=== PATIENT | female | born 1975 | race Hispanic/Latino ===

== ENCOUNTER 2018-01-22 10:30 | Inpatient (IN) | payer MEDICAID ==
[~2018-01-22] VITALS: Ht 152.4 cm; Wt 88.5 kg
[2018-04-02 13:48] VITALS: BP 118/85
[2018-04-02] MEDS ORDERED: LORA10TA7 PO (14:18)
[2018-04-02] MEDS ORDERED: ALBUTEROL NEB (14:18)
[2018-04-02] MEDS ORDERED: PREDNISOLONE AC OU (14:18)
--- NOTE | 2018-04-02 14:20 | NUR ---
SKIN PT HAS A CUT FROM SHAVING TO RT LOWER LEG (FRANCISCO)- SCAB PRESENT, SOME OOZING PER PT, COVERED WITH BAND AID. Addendum: 04/02/18 at 1511 by JONATHAN BURDEN RN RN ADDENDUM 1510- Leonardo SWARTZ NOTIFIED OF PT'S CUT, NO ISOLATION NEEDED, LONG IT IS COVERED IF DRAINING.
[2018-04-02] MEDS ORDERED: ZOLP5TAB8 PO (14:27)
[2018-04-02] MEDS ORDERED: PANT40TA25 PO (14:27)
[2018-04-02] MEDS ORDERED: BUDE10.2 IH (14:27)
[2018-04-02] MEDS ORDERED: TIOT18CA3 IH (14:27)
[2018-04-02] MEDS ORDERED: PROAIR HFA IH (14:27)
[2018-04-02] MEDS ORDERED: SOLI10TA PO (14:27)
--- NOTE | 2018-04-02 15:24 | NUR ---
CLARIFICATION RE PREOP RHEA WAGNER, PT ALLERGIC TO IBUPROFEN. DR. BYRNES NOTIFIED, NO CHANGES MADE, NO FURTHER ORDERS.
[2018-04-03] MEDS ORDERED: CEFAZOLIN SODIUM 1 GM VIAL IVP ONE (08:00)
[2018-04-03] MEDS ORDERED: LACTATED RINGERS 1000ML 1,000 ML IV SCH (08:00)
[2018-04-17 11:48] LABS: BASOPHILS % (AUTO) 0.4 % (0.0-5.0); EOSINOPHILS % (AUTO) 0.4 % (0.0-8.0); HEMATOCRIT 37.5 % (36-48); LYMPHOCYTES % (AUTO) 25.2 % (21.0-51.0); MEAN CORPUSCULAR HEMOGLOBIN 29.7 pg (27.0-33.0); MEAN CORPUSCULAR HGB CONC 33.4 g/dL (32.0-36.0); MONOCYTES % (AUTO) 8.2 % (3.0-13.0); NEUTROPHILS % (AUTO) 65.8 % (40.0-77.0); NUCLEATED RED BLOOD CELLS 0.1 % (0.0-0.19); PLATELET COUNT (AUTO) 230 K/uL (130-400); RED BLOOD CELL COUNT(AUTO) 4.21 MIL/uL (4.00-5.50); RED CELL DISTRIBUTION WIDTH 14.2 % (11.0-15.5); WHITE BLOOD COUNT (AUTO) 3.9 K/uL (4.8-10.8)
[2018-04-17] MEDS ORDERED: CEFAZOLIN SODIUM 1 GM VIAL IVP SCH (13:30)
--- NOTE | 2018-04-17 14:20 | NUR ---
CLARIFICATION CLARIFIED WITH DR. DELCID IF BMP NEEDS TO BE DRAWN. PER DR. DELCID, BMP NOT NEEDED.
[2018-04-18] VITALS (20 sets, daily range): BP systolic 99–124; BP diastolic 62–80
[2018-04-18] MEDS ORDERED: LACTATED RINGERS 1000ML 1,000 ML IV ONE (09:12)
[2018-04-18] MEDS ORDERED: CALDOLOR 800MG+NS 250ML 250 ML IV ONE (09:26)
[2018-04-18] MEDS ORDERED: DURAMORPH PF1 MG/ML 10ML AMP IV ONE (09:27)
[2018-04-18] MEDS ORDERED: LIDOCAINE PF 2% 5ML ABBOJECT ONE (09:29)
[2018-04-18] MEDS ORDERED: PROPOFOL 10 MG/ML 20ML VIAL IV ONE (09:29)
[2018-04-18] MEDS ORDERED: ROCURONIUM 10MG/1ML SYR 10 MG/ML ML ONE (09:29)
[2018-04-18] MEDS ORDERED: FENTANYL CITRATE PF 50 MCG/1 ML 2ML VIAL ONE (09:29)
[2018-04-18] MEDS ORDERED: MIDAZOLAM HCL 1 MG/ML 2ML VIAL ONE (09:29)
[2018-04-18] MEDS ORDERED: FAMOTIDINE/PF 20 MG/2 ML VIAL IV ONE (11:14)
[2018-04-18] MEDS ORDERED: GLYCOPYRROLATE 1 MG/5 ML SYRINGE ONE (11:23)
[2018-04-18] MEDS ORDERED: NEOSTIGMINE 5MG/5ML SYR IV ONE (11:24)
[2018-04-18] MEDS ORDERED: OCTYL 2-CYANOACRYLATE 1 EACH TP ONE (11:48)
[2018-04-18] MEDS ORDERED: PROMETHAZINE HCL 25 MG/ML 1ML AMPULE IM ONE (12:10)
[2018-04-18] MEDS ORDERED: ACETAMINOPHEN-CODEINE 300/30MG TAB PO PRN (12:15)
[2018-04-18] MEDS ORDERED: ONDANSETRON HCL 4 MG/2 ML VIAL IVP PRN (12:15)
[2018-04-18] MEDS ORDERED: BISACODYL 10 MG SUPP.RECT RC PRN (12:15)
[2018-04-18] MEDS ORDERED: PROMETHAZINE HCL 25 MG/ML 1ML AMPULE IM PRN (12:15)
[2018-04-18] MEDS ORDERED: MEPERIDINE-PF 75 MG/ML SYG IM PRN (12:15)
[2018-04-18] MEDS ORDERED: METOCLOPRAMIDE 10 MG/2 ML VIAL ONE (12:25)
--- NOTE | 2018-04-18 13:20 | NUR ---
ASSESSMENT PT RECEIVED FROM PACU, VIA BED, ACCOMPANIED BY ML, RN AND HUDSON, RN; PT AWAKE BUT DROWSY, AND ORIENTATED TO ROOM; PT HAS HOME CPAP MACHINE CONNECTED TO OXYGEN AT 4L, O2 SAT AT 100%; PRESENT AT BEDSIDE, ORIENTATED TO ROOM WELL; PT HAS AN ABRASION TO RIGHT LOWER LEG, FRANCISCO AREA, COVERED BY LIQUID BAND-AID, PICTURES AND MEASUREMENTS WILL BE TAKEN AND PLACED IN CHART; POC DISCUSSED WITH PT AND SPOUSE, BOTH VERBALIZED UNDERSTANDING
[2018-04-18] MEDS: SODIUM CHLORIDE 0.9% 1000ML 1,000 ML IV SCH (14:05)
--- NOTE | 2018-04-18 17:26 | NUR ---
ACTIVITY PT DANGLING AT BEDSIDE TO HAVE DINNER, CALL LIGHT WITHIN REACH, AT BEDSIDE, PT AAOX3, NO C/O PAIN
--- NOTE | 2018-04-18 19:50 | NUR ---
PT. MED FOR C/O NAUSEA, NO EMESIS NOTED.
[2018-04-18] MEDS: CEFAZOLIN SODIUM 1 GM VIAL IVP SCH ×2 (20:15→20:25)
[2018-04-18] MEDS: ALBUTEROL SULFATE 0.083% 2.5 MG/3 ML INH IH PRN (20:25)
[2018-04-18] MEDS: CALDOLOR 800MG+NS 250ML 250 ML IV SCH (20:31)
[2018-04-18] MEDS: OXYBUTYNIN CHLORIDE 5 MG TABLET PO SCH (21:00)
[2018-04-19] MEDS ORDERED: IPRATROPIUM 0.5 MG/2.5 ML INH IH SCH
--- NOTE | 2018-04-19 00:45 | NUR ---
PT. UP WITH ASSIST TO SIT AT BEDSIDE PER REQUEST; ASSISTED BY 2 L&D STAFF AND I. WELL TOLERATED. PT. SAID SHE WILL NOTIFY NURSE WHEN READY TO GO BACK TO BED. FOOT STOOL PROVIDED AND SAFETY ENSURED.
--- NOTE | 2018-04-19 01:40 | NUR ---
PT. BACK IN BED WITH ASSIST. DENIED PAIN AND DISCOMFORT.
[2018-04-19] MEDS: CEFAZOLIN SODIUM 1 GM VIAL IVP SCH ×2 (03:54→12:15)
[2018-04-19] MEDS: SODIUM CHLORIDE 0.9% 1000ML 1,000 ML IV SCH ×3 (03:54→12:12)
[2018-04-19 04:00] VITALS: BP 132/72
[2018-04-19] MEDS: CALDOLOR 800MG+NS 250ML 250 ML IV SCH (04:03)
[2018-04-19] MEDS: IPRATROPIUM/ALBUTEROL SULFATE 3 ML SOLUTION IH SCH ×4 (05:58→18:57)
--- NOTE | 2018-04-19 05:58 | NUR ---
O2 assessment: pt on room air with home cpap. Addendum: 04/19/18 at [address] RT Amended: Links added.
[2018-04-19] MEDS: BUDESONIDE 0.5 MG/2 ML INH IH SCH ×2 (06:11→19:13)
[2018-04-19 06:56] LABS: HEMATOCRIT 24.1 % (36-48); MEAN CORPUSCULAR HEMOGLOBIN 29.9 pg (27.0-33.0); MEAN CORPUSCULAR HGB CONC 33.6 g/dL (32.0-36.0); MEAN CORPUSCULAR VOLUME 89.1 fL (79-99); PLATELET COUNT (AUTO) 154 K/uL (130-400); RED CELL DISTRIBUTION WIDTH 13.6 % (11.0-15.5); WHITE BLOOD COUNT (AUTO) 3.8 K/uL (4.8-10.8)
[2018-04-19 07:42] VITALS: BP 103/61
--- NOTE | 2018-04-19 08:50 | NUR ---
MOORE MOORE REMOVED, CATHETER TIP INTACT, 200mL OF CLEAR LIGHT MISSAEL URINE REMOVED, SHAWNA-CARE PROVIDED; TELFA OVER INCISION REMOVED EXPOSING INCISION w/DERMABOND, DRY AND INTACT; SCDs REMOVED, TEDs ADJUSTED; PT REPOSITIONED TO DANGLE TO EAT BREAKFAST, CPAP REMOVED; POC DISCUSSED, PT VERBALIZED UNDERSTANDING Addendum: 04/19/18 at 1042 by JONATHAN ORTIZ RN Amended: Links added.
[2018-04-19] MEDS: DOCUSATE SODIUM 100 MG CAP PO PRN ×2 (09:15→20:56)
[2018-04-19] MEDS: OXYBUTYNIN CHLORIDE 5 MG TABLET PO SCH ×3 (09:15→20:56)
[2018-04-19] MEDS: PANTOPRAZOLE SODIUM 40 MG TABLET.DR PO SCH (09:16)
[2018-04-19] MEDS: PREDNISOLONE ACETATE 1% 5ML DROPS.SUSP OU SCH (09:17)
--- NOTE | 2018-04-19 10:25 | NUR ---
ACTIVITY PT AMBULATED TO BATHROOM, WITH ASSISTANCE, IS STEADY WHEN AMBULATING, WAS ABLE TO VOID, ASSISTED WITH SHAWNA-CARE, AMBULATED WITH ASSISTANCE TO CHAIR; NC APPLIED AT 3L FOR OXYGEN SUPPORT; POC DISCUSSED, CALL LIGHT WITHIN REACH, PT VERBALIZED UNDERSTANDING
[2018-04-19 11:14] VITALS: BP 124/74
[2018-04-19] MEDS: IBUPROFEN 800 MG TAB PO SCH ×2 (12:23→21:04)
[2018-04-19] MEDS: SIMETHICONE 80 MG TAB.CHEW PO PRN ×3 (12:23→20:56)
[2018-04-19 15:35] VITALS: BP 138/75
[2018-04-19 19:13] VITALS: BP 124/79
--- NOTE | 2018-04-19 19:25 | NUR ---
DC PLAN VISITED WITH PATIENT. PATIENT LIVES WITH SPOUSE. SEMI DEPENDENT ABLE TO PERFORM MOST ADL'S. PATIENT HAS PROVIDER 4 HRS A DAY. WHEEL CHAIR, JOSE A, ABY, 02 (THROUGH [facility]). FEELS SAFE TO RETURN HOME. Addendum: 04/19/18 at 1927 by ANALY PULIDO RN CM Amended: Links added.
--- NOTE | 2018-04-19 23:35 | NUR ---
[place] -[facility] tech and I assisted pt to the bathroom, pericare done, assisted back to bed. Addendum: 04/20/18 at 0133 by ANGEL ACEVES RN Amended: Links added.
[2018-04-20 00:18] VITALS: BP_SYST 106; BP_SYST 118; BP_DIAS 74; BP_DIAS 76
[2018-04-20 04:14] VITALS: BP 142/88
[2018-04-20] MEDS: IBUPROFEN 800 MG TAB PO SCH ×2 (04:21→12:36)
[2018-04-20] MEDS: IPRATROPIUM/ALBUTEROL SULFATE 3 ML SOLUTION IH SCH ×2 (06:00→10:35)
[2018-04-20] MEDS: BUDESONIDE 0.5 MG/2 ML INH IH SCH (06:16)
[2018-04-20] MEDS: ALBUTEROL SULFATE 0.083% 2.5 MG/3 ML INH IH PRN (06:16)
[2018-04-20 07:03] LABS: HEMATOCRIT 24.8 % (36-48); MEAN CORPUSCULAR HGB CONC 33.3 g/dL (32.0-36.0); PLATELET COUNT (AUTO) 154 K/uL (130-400); RED BLOOD CELL COUNT(AUTO) 2.76 MIL/uL (4.00-5.50); RED CELL DISTRIBUTION WIDTH 14.2 % (11.0-15.5); WHITE BLOOD COUNT (AUTO) 3.9 K/uL (4.8-10.8)
[2018-04-20 07:22] VITALS: BP 105/73
[2018-04-20] MEDS: PREDNISOLONE ACETATE 1% 5ML DROPS.SUSP OU SCH (09:00)
[2018-04-20] MEDS: OXYBUTYNIN CHLORIDE 5 MG TABLET PO SCH (10:50)
[2018-04-20] MEDS: PANTOPRAZOLE SODIUM 40 MG TABLET.DR PO SCH (10:50)
[2018-04-20] MEDS: SIMETHICONE 80 MG TAB.CHEW PO PRN ×2 (10:50→12:37)
[2018-04-20] MEDS: DOCUSATE SODIUM 100 MG CAP PO PRN (10:50)
--- NOTE | 2018-04-20 13:50 | NUR ---
DISCHARGE PT STABLE, NO PAIN, NO COMPLAINTS; PT SIGNED DISCHARGE INSTRUCTIONS, DEMONSTRATED TO SPOUSE HOW TO CHANGE TELFA OVER INCISION, RETURN DEMONSTRATION COMPLETED BY SPOUSE; PT LEFT UNIT, VIA PERSONAL WHEELCHAIR, ACCOMPANIED BY [facility] CARRYING ALL PERSONAL BELONGINGS, INSTRUCTIONS, AND PRESCRIPTION; PT LEFT FACILITY IN PERSONAL VEHICLE
== END 2018-04-20 13:50 | disposition home or self-care (01) | DRG 519 ==
LOC: EDSTATUS 10:30 → DAHIP 04-18 08:00 → WSH 04-18 13:15
PROC: 5A09357 Assistance with Respiratory Ventilation, Less than 24 Consecutive Hours, Continuous Positive Airway Pressure (ICD-10-PCS; 2018-04-18)
PROC: 0UT90ZZ Resection of Uterus, Open Approach (ICD-10-PCS; principal; 2018-04-18 10:22)
PROC: 0WQF0ZZ Repair Abdominal Wall, Open Approach (ICD-10-PCS; 2018-04-18 10:22)
DX: D25.9 Leiomyoma of uterus, unspecified (principal); K43.2 Incisional hernia without obstruction or gangrene; N92.0 Excessive and frequent menstruation with regular cycle; K66.0 Peritoneal adhesions (postprocedural) (postinfection); Z98.51 Tubal ligation status
CPT/HCPCS: 36415; 76705; 85025; 85027; 86850; 86900; 86901; 88307; 94640; 94664; A4218; A4344; G0378; J0690; J1741; J2001; J2250; J2274; J2550; J2704; J2710; J2765; J3010; J3490; J7030; J7120; J7510

== ENCOUNTER 2018-03-06 09:46 | Observation (INO) | payer MEDICAID ==
[~2018-03-06] VITALS: Ht 152.4 cm; Wt 88.9 kg
[2018-03-06] MEDS ORDERED: ACETAMINOPHEN 325 MG TAB ONE (09:57)
[2018-03-06 10:03] LABS: BASOPHILS % (AUTO) 0.2 % (0.0-5.0); HEMATOCRIT 39.1 % (36-48); LYMPHOCYTES % (AUTO) 6.1 % (21.0-51.0); MEAN CORPUSCULAR HEMOGLOBIN 30.1 pg (27.0-33.0); MEAN CORPUSCULAR HGB CONC 33.8 g/dL (32.0-36.0); MEAN CORPUSCULAR VOLUME 89.1 fL (79-99); MONOCYTES % (AUTO) 10.2 % (3.0-13.0); NEUTROPHILS % (AUTO) 83.5 % (40.0-77.0); NUCLEATED RED BLOOD CELLS 0.1 % (0.0-0.19); PLATELET COUNT (AUTO) 177 K/uL (130-400); RED BLOOD CELL COUNT(AUTO) 4.39 MIL/uL (4.00-5.50); RED CELL DISTRIBUTION WIDTH 13.4 % (11.0-15.5)
[2018-03-06 10:13] LABS: CREATININE 0.3 mg/dL (0.5-1.5); POTASSIUM 5.1 mmol/L (3.5-5.1)
[2018-03-06 10:15] LABS: INR 1.08 (0.85-1.15); PARTIAL THROMBOPLASTIN TIME 32.5 SEC (26.3-35.5); PROTHROMBIN TIME 11.3 SEC (9.6-11.6)
[2018-03-06 10:26] LABS: THYROID STIMULATING HORMONE 1.95 uIU/mL (0.36-3.74)
[2018-03-06 10:29] LABS: ABG BASE EXCESS -1.4 mmol/L (-2.0-3.0); ABG HCO3 22.2 mmol/L (21.0-28.0); ABG OXYGEN SATURATION 93.2 % (95.0-99.0); ABG PCO2 34 mmHg (32-45)
[2018-03-06 10:40] VITALS: BP 100/66
[2018-03-06 10:53] LABS: B-TYPE NATRIURETIC PEPTIDE 29 pg/mL (0-100)
[2018-03-06] MEDS ORDERED: DOCUSATE SODIUM 100 MG CAP PO PRN (11:00)
[2018-03-06] MEDS ORDERED: IPRATROPIUM/ALBUTEROL SULFATE 3 ML SOLUTION IH PRN (11:00)
[2018-03-06] MEDS ORDERED: LEVOFLOXACIN 750 MG/D5W 150 ML 150 ML IV SCH (11:00)
[2018-03-06] MEDS ORDERED: METOCLOPRAMIDE 10 MG/2 ML VIAL IVP PRN (11:00)
[2018-03-06] MEDS ORDERED: ACETAMINOPHEN 325 MG TAB PO PRN (11:00)
[2018-03-06] MEDS: METHYLPREDNISOLONE SOD SUCC 40MG/ML 1ML IVP SCH ×2 (11:49→19:38)
[2018-03-06] MEDS: SODIUM CHLORIDE 0.9% 1000ML 1,000 ML IV SCH (11:49)
[2018-03-06] MEDS: IPRATROPIUM/ALBUTEROL SULFATE 3 ML SOLUTION IH SCH ×3 (12:58→23:48)
[2018-03-06] MEDS ORDERED: ONDANSETRON HCL 4 MG/2 ML VIAL ONE (13:07)
[2018-03-06] MEDS ORDERED: CEFEPIME HCL 2 GM VIAL IVP SCH (13:15)
[2018-03-06] MEDS ORDERED: ONDANSETRON HCL MDV 20ML 2 MG/ML VIAL IVP PRN (13:15)
[2018-03-06] MEDS: CEFEPIME HCL 1 GM VIAL IVP SCH ×2 (13:33→21:45)
[2018-03-06] MEDS ORDERED: SOLI5 PO (13:45)
[2018-03-06] MEDS ORDERED: BISMUTH SUBSALICYLATE 262 MG/15 ML ML PO SCH (13:45)
[2018-03-06 16:00] VITALS: BP 101/72
[2018-03-06] MEDS: METOCLOPRAMIDE 10 MG/2 ML VIAL IVP SCH ×2 (16:10→23:00)
[2018-03-06 19:34] VITALS: BP 90/55
--- NOTE | 2018-03-06 20:00 | NUR ---
PT ASSESSMENT- IN BED, AT BEDSIDE. IV FLUIDS RUNNING. IV PATENT. NO PAIN STATED. BIPAP IN PLACE. STATES IS HOME BIPAP. SHE IS UNSURE OF THE SETTINGS. WILL BRING BACK INFORMATION FROM HOME. INQUIRING TO WHAT IS HER DIAGNOSIS AND "WHAT IS WRONG WITH MY LUNGS". ABLE TO AMBULATE WITH ASSISTANCE. WEAK GAIT. AAOX3. PERRLA. ACTIVE BOWEL SOUNDS.
[2018-03-06] MEDS: DOCUSATE SODIUM 100 MG CAP PO SCH (21:44)
[2018-03-06] MEDS: OSELTAMIVIR PHOSPHATE 75 MG CAP PO SCH (21:44)
[2018-03-06] MEDS: OXYBUTYNIN CHLORIDE 5 MG TABLET PO SCH (21:45)
[2018-03-06] MEDS: DOXYCYCLINE HYCLATE 100 MG TABLET PO SCH (21:45)
[2018-03-06 23:24] VITALS: BP 85/54
[2018-03-07] MEDS: SODIUM CHLORIDE 0.9% 1000ML 1,000 ML IV SCH ×2 (00:20→13:40)
[2018-03-07] MEDS: METOCLOPRAMIDE 10 MG/2 ML VIAL IVP SCH ×4 (02:27→17:00)
[2018-03-07] MEDS: METHYLPREDNISOLONE SOD SUCC 40MG/ML 1ML IVP SCH ×2 (02:27→11:49)
[2018-03-07 03:38] VITALS: BP 100/68
[2018-03-07 04:07] LABS: ABG BASE EXCESS -4.8 mmol/L (-2.0-3.0); ABG HCO3 19.6 mmol/L (21.0-28.0); ABG OXYGEN SATURATION 98.5 % (95.0-99.0); ABG PCO2 35 mmHg (32-45)
[2018-03-07 04:30] LABS: HEMATOCRIT 35.9 % (36-48); MEAN CORPUSCULAR HEMOGLOBIN 29.1 pg (27.0-33.0); MEAN CORPUSCULAR HGB CONC 32.6 g/dL (32.0-36.0); MEAN CORPUSCULAR VOLUME 89.2 fL (79-99); NUCLEATED RED BLOOD CELLS 0.1 % (0.0-0.19); PLATELET COUNT (AUTO) 170 K/uL (130-400); RED BLOOD CELL COUNT(AUTO) 4.02 MIL/uL (4.00-5.50); RED CELL DISTRIBUTION WIDTH 13.3 % (11.0-15.5); WHITE BLOOD COUNT (AUTO) 3.6 K/uL (4.8-10.8)
[2018-03-07 04:48] LABS: CREATININE 0.5 mg/dL (0.5-1.5); PHOSPHORUS 2.4 mg/dL (2.5-4.9); POTASSIUM 3.9 mmol/L (3.5-5.1)
[2018-03-07] MEDS: CEFEPIME HCL 1 GM VIAL IVP SCH ×2 (05:32→13:52)
[2018-03-07] MEDS: IPRATROPIUM/ALBUTEROL SULFATE 3 ML SOLUTION IH SCH ×2 (06:31→11:02)
[2018-03-07 07:00] VITALS: BP 101/61
[2018-03-07] MEDS: OSELTAMIVIR PHOSPHATE 75 MG CAP PO SCH (08:56)
[2018-03-07] MEDS: DOXYCYCLINE HYCLATE 100 MG TABLET PO SCH (08:56)
[2018-03-07] MEDS: DOCUSATE SODIUM 100 MG CAP PO SCH (08:56)
[2018-03-07] MEDS: OXYBUTYNIN CHLORIDE 5 MG TABLET PO SCH (08:57)
[2018-03-07] MEDS ORDERED: PANTOPRAZOLE SODIUM 40 MG TABLET.DR PO SCH (09:00)
[2018-03-07] MEDS ORDERED: ENOXAPARIN SODIUM 40 MG/0.4 ML SYRINGE SQ SCH (09:00)
[2018-03-07 11:00] VITALS: BP 89/55
--- NOTE | 2018-03-07 15:02 | NUR ---
RD Notification received Patient admitted for Hypoxemia and COPD exacerbation. Patient reports good appetite with no report of GI distress. Patient PO intake at 100%. Patient BMI 38.3. Patient LBM 03/06/18. Patient monitored labs: BUN 19, Glu 169, P 2.4. RD to continue to monitor PO intake and nutritional labs. Please notify Rd as nutritional concerns arise. Thank you. Addendum: 03/07/18 at [address] Amended: Links added.
[2018-03-07 16:00] VITALS: BP 94/63
[2018-03-07] MEDS ORDERED: METH4TAB3 PO (17:05)
[2018-03-07] MEDS ORDERED: DOXY100C2 PO (17:05)
--- NOTE | 2018-03-07 17:55 | NUR ---
DC PLAN VISITED WITH PATIENT. PATIENT LIVES WITH SPOUSE. SEMI INDEPENDENT ABLE TO PERFORM SOME ADL'S. PATIENT HAS PROVIDER 4 HOURS A DAY. JOSE A MANZO, 02 WITH ELISABETH BARBA WITH [facility]. FEELS SAFE TO RETURN HOME. Addendum: 03/07/18 at 1758 by ANALY PULIDO RN CM Amended: Links added.
== END 2018-03-07 18:44 | disposition home or self-care (01) ==
LOC: EDH 09:46 → INTOOBSV 09:47 → 2DH 09:47
PROVIDERS: ADMIT Internal Medicine; ATTEND Internal Medicine
DX: J11.1 Influenza due to unidentified influenza virus with other respiratory manifestations (principal); G71.00 Muscular dystrophy, unspecified; J45.901 Unspecified asthma with (acute) exacerbation; J96.10 Chronic respiratory failure, unspecified whether with hypoxia or hypercapnia; D49.4 Neoplasm of unspecified behavior of bladder; E66.9 Obesity, unspecified; I50.42 Chronic combined systolic (congestive) and diastolic (congestive) heart failure; J20.9 Acute bronchitis, unspecified; K21.9 Gastro-esophageal reflux disease without esophagitis; Z88.8 Allergy status to other drugs, medicaments and biological substances; Z79.899 Other long term (current) drug therapy
CPT/HCPCS: 36415 ×2; 36600 ×2; 71045; 80048 ×2; 82803 ×2; 83605 ×2; 83735; 83880; 84100; 84443; 85025; 85027; 85610; 85730; 87040 ×2; 87804 ×2; 93005; 93306; 94640 ×5; 94664; 96365; 96372; 96375; 96376 ×2; 99284; A4218 ×3; G0378 ×33; J0692 ×5; J1650; J1956; J2405; J2765 ×4; J2920 ×4; J7030 ×2